=== PATIENT | female | born 1970 | race Caucasian/White ===

== ENCOUNTER → 2019-01-01 11:21 | Outpatient (CLI) | payer OTHER, SELFPAY ==
[2019-01-01 12:18] LABS: Add Manual Diff / Slide Review NO; Basophils Absolute Auto 100 /uL (0-100); Basophils Percent Auto 0.9 % (0-2); Eosinophils Absolute Auto 0 /uL (0-450); Eosinophils Percent Auto 0.6 % (2-4); Hematocrit 35.3 % (36-46); Hemoglobin 11.3 g/dL (12.0-16.0); Lymphocytes Absolute Auto 1200 /uL (1100-4500); Lymphocytes Percent Auto 20.2 % (25-40); Mean Corpuscular Hemoglobin 25.9 PG (26-34); Monocytes Absolute Auto 400 /uL (0-900); Monocytes Percent Auto 6.6 % (3-14); Neutrophils Absolute Auto 4200 /uL (1500-7000); Neutrophils Percent Auto 71.7 % (50-75); Platelet Count 372 X10^3/uL (150-400); Red Blood Cell Count 4.36 X10^6/uL (4.0-5.2); White Blood Cell Count 5.8 X10^3/uL (4.5-11.0)
== END ==
PROVIDERS: PCP Specialist; Visit Provider Specialist
DX: N92.0 Excessive and frequent menstruation with regular cycle (principal)
CPT/HCPCS: 36415; 85025

== ENCOUNTER 2019-01-07 15:13 | Observation (INO) | payer OTHER, SELFPAY ==
[2018-12-25 10:42] VITALS: BMI 26.8
[2019-01-06] VITALS (18 sets, daily range): BP systolic 104–133; BP diastolic 62–82; PULSE 73–103; RESP 8–20; TEMP 36.3–37.2; O2SAT 96–100; BMI 25.3
--- NOTE | 2019-01-06 | PATH_ITS ---
[facility] Accession Number: [id number] . 01 Material submitted: . uterus - UTERUS,RIGHT FALLOPIAN TUBE AND OVARY, LEFT FALLOPIAN TUBE . 02 Diagnosis: Uterus, Right Fallopian Tube and Ovary and Left Fallopian Tube, Supracervical Hysterectomy, Bilateral Salpingectomy and Right Oophorectomy: Secretory endometrium with no diagnostic abnormality. Adenomyosis. Multiple leiomyomata, up to 2.5 cm in greatest dimension. Bilateral fallopian tubes with endometriosis and simple benign paratubal cysts. 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 Negative for malignancy. [facility]/01/08/2019 . 02 Comment: As part of routine bottle house quality control technician, Dr. Talbot has reviewed slide A13 of this case and agrees with the diagnosis of benign mucinous cystadenoma. . 02 Electronically signed: . Schuyler Bowden MD, PhD, Pathologist NPI- [id number] . 01 Gross description: . Received in formalin, labeled uterus, right fallopian tube +ovary, left fallopian tube, is a uterus in two pieces (749 grams, 8.5 cm AP, 15.3 cm SI, 13.5 cm ML), a detached ovary (3.7 x 2.0 x 1.5 cm) with an attached fimbriated fallopian tube (length-6.2 cm, diameter-0.6 cm) and a detached fimbriated fallopian tube (length-2.5 cm, diameter-0.5 cm). The cervix and second ovary are absent. The specimen cannot be oriented as to anterior and posterior. The endometrial cavity is received opened with the other piece of uterine tissue appearing to come from the cavity. The endometrium and myometrium cannot be grossly measured. The uterine parenchyma is beckford-white with a white whorled pattern. Multiple solid firm white whorled well-circumscribed homogeneous nodules (0.9 x 0.7 x 0.5 cm-2.5 x 1.5 x 0.8 cm) are identified within the parenchyma as well as subserosal. The serosa is beckford smooth and dull. The ovary has beckford-salguero smooth shiny flat serosa and a beckford-white solid firm partially cystic parenchyma with corpus luteum identified. The cavity (up to 2.5 cm) contains red-brown solid paste-like material and clear colorless tacky fluid. The fallopian tubes have salguero-pink smooth dull serosa and beckford unremarkable lumens. Section code: (A1-A4) uterine parenchyma, ocean import representative; (A5-A8) uterine parenchyma, opposite side; (A9-A12) ocean import representative uterine parenchyma from the separate piece; (A13-A15) ovary, ocean import representative serial sections; (A16) attached fallopian tube, ocean import representative serial sections; (A17) attached fimbria, bivalved, entirely submitted; (A18) detached fallopian tube, ocean import representative serial sections; (A19) detached fimbria, bivalved, entirely submitted. ([id number]) /MRV . 02 Pathologist provided ICD-10: N80.0, N80.9, D25.9, D27.0 . 02 CPT . 214912 [facility] [address] [id number] MD Calvin Lloyd MD Phone: [phone] Performed at: [address] [id number] MD Valerie Talbot MD Phone: [phone]
--- NOTE | 2019-01-06 07:26 | PM.PREOP ---
Pre-operative Note Interval Note History & Physical reviewed/Exam performed by Physician: Yes Changes to H&P: Yes H&P completed within 30 days and has changed as indicated here:: pt requesting to leave cervix
[2019-01-06] MEDS: LACTATED RINGERS 1,000 ML 100 ML IV ×4 (07:35→20:58)
[2019-01-06] MEDS: CEFAZOLIN 2 GM/100 ML FROZ.PIGGY IV (07:50)
--- NOTE | 2019-01-06 08:11 | SUR.OPER ---
Supine on padded OR bed, head on pillow, arms secured on padded arm boards at <90 degrees abduction, legs uncrossed, safety belt at thigh, tape over blanket over lower legs.
[2019-01-06] MEDS: VASOPRESSIN 20 UNIT/ML VIAL IV (08:23)
[2019-01-06] MEDS: SODIUM CHLORIDE 0.9% FLUSH 10 ML IV (08:24)
--- NOTE | 2019-01-06 09:43 | P.OP_ITS ---
Operative Date/Time/Diagnoses Date of procedure: 01/06/19 Time of procedure: 09:32 Pre-op diagnosis: Menorrhagia and right ovarian complex cyst likely endometrioma Post-op diagnosis: same Procedure & Clinicians Procedure: Laparotomy with supracervical hysterectomy, right salpingo- oophorectomy, left salpingectomy with treatment of endometriosis on the left ovary Same procedure as scheduled: Yes Indications: Menorrhagia, uterine fibroids, complex right ovarian cyst suggestive of endometrioma Surgeon: Dai Murdock Maintenance Trainer: Hilda Nascimento Click Yes if Unassisted: No Anesthesia Type: General Operative Notes Findings: Large fibroid uterus with large right endometrioma, small left endometrioma with endometriosis on the left ovary. Normal appendix normal palpation of the upper abdomen. Closure Type: primary Specimen(s): other (Supracervical hysterectomy, right tube and ovary, left tube) Applied: catheter (Franks) Estimated Blood Loss (mL): 75 Blood products transfused: none Procedure in detail: Patient was brought to the operating room where she underwent general anesthesia. She was in a supine position with pulsatile stockings in place and functional, warming in place, Franks catheter placed. 2 g Ancef were in prior to beginning of the case. A check system was reviewed with the staff in the room prior to beginning the case. An incision was made suprapubically with the scalpel and the incision was carried down to the fascial layer. Bleeding was stopped with the Bovie. The fascia was incised transversely and superiorly and inferiorly. The rectus muscles were in the midline and the peritoneum entered sharply. No damage to internal structures were noted with entering the abdomen. The uterus was elevated out of the abdomen. The round ligaments were clamped cut and ligated. The anterior peritoneum was incised above the level the bladder. The infundibulopelvic ligament on the right side was clamped cut and ligated with 0 Vicryl suture which was used throughout the case unless otherwise indicated. The uterine arteries were clamped cut and ligated bilaterally. The fundus of the uterus was injected with vasopresson and the large fibroid was removed with blunt and sharp dissection. Bites were taken down the broad ligament to the level of the bladder. The uterus was removed supracervical with cautery and cauterization down in the endocervical canal was performed. Bleeding was stopped with the Bovie. The cervix was closed with interrupted 0 Vicryl suture. Adequate hemostasis was obtained with 2 0 Vicryl suture. The abdomen was irrigated. The left fallopian tube was removed and the small left endometrioma was cauterized and endometriosis on the surface ovary was cauterized. Adequate hemostasis was noted. the peritoneum was closed with 2 0 Vicryl suture. The fascia layer was closed with 0 Vicryl suture in 2 stitches starting at the corners and meeting in the midline. The incision was irrigated. The skin was closed with 4-0 Vicryl suture. Complications: none Condition: stable Disposition: Acute Care Plan for aftercare: Routine post abdominal hysterectomy
[2019-01-06] MEDS: fentaNYL 100 MCG/2 ML INJ 50 MCG IV ×2 (09:53→10:08)
--- NOTE | 2019-01-06 09:56 | SUR.PHASEI ---
Patient awake, talking, states that she feels' wacked out'...; I didn't expect to feel this normal. Dr. Murdock spoke with the patient. Asking multiple questions.
--- NOTE | 2019-01-06 10:23 | SUR.PHASEI ---
States that she was expecting pain to go away completely with Rx; educated patient regarding pain scales and that we want to maintain it no higher than a 5/10. patient is calm, relaxed, tolerating PO well, no grimace, moaning, or other non-verbal indicators of pain. States that she is sensitive to meds and that I wrote a book regarding her concerns; states that it helped it to feel better. I'm a ling and voiced concerns about her vocal cords, stated that her throat doesn't hurt.
--- NOTE | 2019-01-06 10:57 | SUR.PHASEI ---
1035 to room 202, bed down and locked, call light within reach. clothing and glasses to room. Patient A&O, stable VS. Family notified that she is in her room. Pain level steady. Report updated.
[2019-01-06] MEDS: ONDANSETRON 4 MG/2 ML INJ IV ×2 (11:19→15:10)
[2019-01-06] MEDS: KETOROLAC 30 MG/ML VIAL IV ×2 (11:26→17:57)
--- NOTE | 2019-01-06 11:32 | SUR.PHASEI ---
1035 To OPD; bed down and locked, call light within reach, Report given.
[2019-01-06] MEDS: HYDROMORPHONE PCA (6MG/30ML) 6 MG/30 ML PCA.VIAL IV (11:45)
--- NOTE | 2019-01-06 15:32 | PC.NURSE ---
Addendum entered by Chrissy Gee R.N. 01/06/19 15:46: Post-op (late entry): Arrived to room 202 at 1045. Awake and alert, oriented X3. Franks to gravity, urine pale clear yellow. Aquacel dressing on abdomen C/D/I. Scant dried sanguinous drainage on prateek-pad. CHIEF SCIENTIFIC OFFICER initiated per orders, Toradol given for pain as well. Had a couple bouts of nausea, no emesis- Zofran seems to have been effective. BT hypoactive, denies flatus. Sats on room air 99-100%. SCD's removed so she can rest, ankle waving encouraged. IVF per order, site in R wrist WNL. Oriented to room and call light, encouraged to make needs/concerns known. Call light in reach. Original Note: CHIEF SCIENTIFIC OFFICER usage: Used 2.4 mg CHIEF SCIENTIFIC OFFICER Dilaudid for day shift. Unable to chart in e-mar for some reason.
--- NOTE | 2019-01-06 16:10 | PC.NURSE ---
Addendum entered by Hilda Villalobos R.N. 01/06/19 21:56: Refuses SCD at night Addendum entered by Hilda Villalobos R.N. 01/06/19 21:53: Pt med at 2110 for discomfort. Had toradol previously Dsg CDI Stable post op course. Refusies F/C patent clear urine Original Note: Pt awake, presents anxious, asking many questions. Lungs clear, SpO2 96% RA. Dsg to left side w/shadow and right side CDI. IVF infusing via pump as per orders Franks cath patent clear yellow urine. Stable post op course. Call light w/in reach, bed alarm onn for pt safety.
[2019-01-06] MEDS: DOCUSATE 250 MG CAPSULE PO (20:59)
[2019-01-06] MEDS: OXYCODONE/ACETAMINOPHEN 5/325 TABLET 2 TAB PO (21:07)
[2019-01-07] VITALS (8 sets, daily range): BP systolic 107–118; BP diastolic 64–69; PULSE 68–82; RESP 16; TEMP 36.7–36.9; O2SAT 97–100
[2019-01-07] MEDS: KETOROLAC 30 MG/ML VIAL IV ×3 (00:37→12:47)
--- NOTE | 2019-01-07 00:56 | PC.NURSE ---
2300- Pt POD#0 supracervic hysterectomy w/ aquasil dressing on lower abdomen CDI. Franks catheter in place draining pale yellow urine w/ large amounts of output noted. LR running as ordered into R wrist; RA w/ VSS; not ambulated yet post op. 0045- Another 1000mL of output noted. LR turned off per protocol; good PO output noted & no nausea. IV toradol given per pt's request. Continues to have anxiety.
[2019-01-07] MEDS: OXYCODONE/ACETAMINOPHEN 5/325 TABLET 2 TAB PO ×5 (01:22→19:39)
[2019-01-07 06:22] LABS: Add Manual Diff / Slide Review NO; Basophils Absolute Auto 0 /uL (0-100); Basophils Percent Auto 0.3 % (0-2); Eosinophils Absolute Auto 0 /uL (0-450); Eosinophils Percent Auto 0.1 % (2-4); Hematocrit 32.5 % (36-46); Hemoglobin 10.6 g/dL (12.0-16.0); Lymphocytes Absolute Auto 1600 /uL (1100-4500); Mean Corpuscular HGB Conc 32.6 % (30-36); Mean Corpuscular Volume 79.9 fL (80-100); Monocytes Absolute Auto 1100 /uL (0-900); Monocytes Percent Auto 8.9 % (3-14); Neutrophils Absolute Auto 9700 /uL (1500-7000); Neutrophils Percent Auto 77.7 % (50-75); Platelet Count 329 X10^3/uL (150-400); Red Blood Cell Count 4.07 X10^6/uL (4.0-5.2); Red Cell Distribution Width 16.3 % (11.6-14.8); White Blood Cell Count 12.5 X10^3/uL (4.5-11.0)
[2019-01-07] MEDS: LEVOTHYROXINE PO (09:26)
[2019-01-07] MEDS: LIOTHYRONINE PO (09:26)
[2019-01-07] MEDS: MAGNESIUM HYDROXIDE 30 ML UDC PO (09:53)
[2019-01-07] MEDS: DOCUSATE 250 MG CAPSULE PO ×2 (09:53→20:30)
--- NOTE | 2019-01-07 10:53 | CM.DANOTE ---
DCP/continued: Reviewed chart. Patient is a 48yr old female admitted under [facility] for CANDIDO/BSO performed by Dr. Murdock on 01-06-19. PCP is Dr. Scott in [place]. Primary payor is 1)Healthcare Management. Met with patient explained CM/SW role. Patient sitting up in bed at time of visit. Patient reports that she is completely I in all ADL's. Patient works full-time at [employer]. Patient does not anticipate any d/c planning needs. Patient resides with her Mother/Tami and plans to return home when stable. Patient reports that she is very health conscious at baseline. Patient does not anticipate any d/c planning needs. Patient somewhat anxious about discharge. Patient reports that she is very much in control of her life and feels like this has made her somewhat out of control. Encouraged patient to use her deep breathing exercises if needed to assist in relieving her anxiety. Patient in agreement. P: Home when stable. HENRIK James Discharge Planning/Care Management CM Discharge Assessment Start: 01/07/19 10:51 Freq: Status: Active Protocol: Document 01/07/19 10:51 FRANS (Rec: 01/07/19 10:52 [facility] [id number]) Discharge Planning Assessment Assigned Truck Driver Teamster HENRIK James Advance Directives? Yes: needs document notarized Advance Directives on File No History Provided By Patient Medical Record Prior Living Arrangements House Household Members significant other family Type of transporation used prior to Drives own vehicle admit Independent with ADL's Yes Is patient alert and oriented? Yes Caregiver for Another No Barriers to Discharge No Discharge Plan Home Transportation Arrangement Family to provide transport. Referrals Initiated None needed Whiteboard Updated in Patient Room with Yes name and ext. # of Truck Driver Teamster Review Status In Process Next Review Type Continued Stay Review Pre-Anesthesia Assessment Start: 12/25/18 10:42 Freq: Status: Complete Protocol: Document 12/25/18 10:42 CAB (Rec: 12/25/18 10:51 CAB [id number]) Pre-Anesthesia Assessment Patient Information Reviewed Via Chart Review Phone Assessment Assessment Completed With Patient Primary Care Provider Erika Smith Seen Specialist in Last 12 Months Yes Specialist Seen A Class Lineman Primary Language [facility] Medical Specialist Required No Height 167.64 cm Weight 75.296 kg Body Mass Index (BMI) 26.8 Hx Anesthesia Reactions No: prior surgical history, I require more numbing med w/ dentist Anesthesia Review Requested No Digital Color Press Operator No alcohol intake never Alcohol Intake Frequency Other: None Smoking Status Never smoker Substance Use Type does not use Pain Present Pain Reported History of Falling (Recent or History of No ) Patient is completely paralyzed or No completely immobile Mental Status Oriented to own ability Is patient on oxygen? No Does patient have KENDRICK/SOB Yes Hx Sleep Apnea No Currently Taking a Beta Jorge L No Hx Chest Pain No Hx SOB Yes Hx Syncope or Dizziness No Anti-Coagulant Therapy No Has a Barber Shop Manager No Cardiac Testing No Hx Pacemaker/ICD No Pacemaker Rep Required? No Urinary Catheter Present No Hx Urinary Self Catheterization No Diabetes No Patient No Lactating No Marital Status Single Lives With significant other Support System Parent(s) Significant Other Patient Discharge Plan Description Return Home
--- NOTE | 2019-01-07 11:21 | PC.NURSE ---
Pt alert, oriented rates abdominal pain 2/10 given one percocet at 1000. Ambulated in [place], gait steady. Bt+ denies nausea. Franks removed at 1100.
--- NOTE | 2019-01-07 17:37 | PM.PNPO.1 ---
Subjective Date Patient Seen: 01/07/19 Time Patient Seen: 17:37 Interval history: Postoperative day #1 supracervical hysterectomy with right salpingo-oophorectomy left salpingectomy. Patient has been able to ambulate to the bathroom and back slowly with a walker. She is urinating well. She states she is passing gas. Her pain is under control. Exam Vital Signs (past 8 hours): - 01/07/19 12:00 01/07/19 15:15 01/07/19 16:00 Temperature 98.4 F 98.5 F Pulse Rate 80 68 Respiratory Rate 16 16 Blood Pressure 107/64 112/68 Pulse Oximetry 99 100 97 Oxygen Delivery Method Room Air Oxygen Flow Rate 0 Narrative Exam Narrative: Patient's abdomen is soft, minimally distended, appropriately tender. The dressing is dry. No vaginal bleeding. Extremities without edema and nontender. Objective Labs Result Diagrams: 01/07/19 05:50 Labs: Laboratory Results - last 24 hr 01/07/19 05:50 WBC 12.5 H RBC 4.07 Hgb 10.6 L Hct 32.5 L MCV 79.9 L MCH 26.0 MCHC 32.6 RDW 16.3 H Plt Count 329 Neut % (Auto) 77.7 H Lymph % (Auto) 13.0 L [place] % (Auto) 8.9 Eos % (Auto) 0.1 L Baso % (Auto) 0.3 Neut # (Auto) 9700 H Lymph # (Auto) 1600 [place] # (Auto) 1100 H Eos # (Auto) 0 Baso # (Auto) 0 Assessment & Plan Post-op (1) Menorrhagia with regular cycle: (2) Endometrioma of ovary: (3) Submucous uterine fibroid: Postoperative Procedures Operation Date: 01/06/19 07:45 Actual Procedures Side Surgeon p Supracervical Abdominal Hysterectomy, Right Salpingo-Oophorectomy,LEFT SALPINGECTOMY Dai Murdock MD Postoperative day: 1 Postoperative status: doing well Postoperative status narrative: Patient is doing well postoperative although moving slow Postoperative plan: routine post-op care Postoperative plan narrative: Plan is for discharge tomorrow if she continues to improve. Time Spent With Patient 15-24 minutes Quality VTE Deep Vein Thrombosis/Pulmonary Embolism Present on Admission: No
--- NOTE | 2019-01-07 17:40 | P.PN_ITS ---
Subjective Date Patient Seen: 01/07/19 Time Patient Seen: 17:37 Interval history: Postoperative day #1 supracervical hysterectomy with right salpingo-oophorectomy left salpingectomy. Patient has been able to ambulate to the bathroom and back slowly with a walker. She is urinating well. She states she is passing gas. Her pain is under control. Exam Vital Signs (past 8 hours): - 01/07/19 12:00 01/07/19 15:15 01/07/19 16:00 Temperature 98.4 F 98.5 F Pulse Rate 80 68 Respiratory Rate 16 16 Blood Pressure 107/64 112/68 Pulse Oximetry 99 100 97 Oxygen Delivery Method Room Air Oxygen Flow Rate 0 Narrative Exam Narrative: Patient's abdomen is soft, minimally distended, appropriately tender. The dressing is dry. No vaginal bleeding. Extremities without edema and nontender. Objective Labs Result Diagrams: 01/07/19 05:50 Labs: Laboratory Results - last 24 hr 01/07/19 05:50 WBC 12.5 H RBC 4.07 Hgb 10.6 L Hct 32.5 L MCV 79.9 L MCH 26.0 MCHC 32.6 RDW 16.3 H Plt Count 329 Neut % (Auto) 77.7 H Lymph % (Auto) 13.0 L [place] % (Auto) 8.9 Eos % (Auto) 0.1 L Baso % (Auto) 0.3 Neut # (Auto) 9700 H Lymph # (Auto) 1600 [place] # (Auto) 1100 H Eos # (Auto) 0 Baso # (Auto) 0 Assessment & Plan Post-op (1) Menorrhagia with regular cycle: (2) Endometrioma of ovary: (3) Submucous uterine fibroid: Postoperative Procedures Operation Date: 01/06/19 07:45 Actual Procedures Side Surgeon p Supracervical Abdominal Hysterectomy, Right Salpingo-Oophorectomy,LEFT SALPINGECTOMY Dai Murdock MD Postoperative day: 1 Postoperative status: doing well Postoperative status narrative: Patient is doing well postoperative although moving slow Postoperative plan: routine post-op care Postoperative plan narrative: Plan is for discharge tomorrow if she continues to improve. Time Spent With Patient 15-24 minutes Quality VTE Deep Vein Thrombosis/Pulmonary Embolism Present on Admission: No
[2019-01-07] MEDS: IBUPROFEN 600 MG TABLET PO (18:10)
[2019-01-08 00:15] VITALS: BP 117/70; PULSE 65; RESP 16; TEMP 36.8; O2SAT 100
[2019-01-08 00:20] VITALS: O2SAT 100
[2019-01-08] MEDS: IBUPROFEN 600 MG TABLET PO ×2 (00:23→08:31)
[2019-01-08] MEDS: ONDANSETRON 4 MG/2 ML INJ IV (01:10)
[2019-01-08] MEDS: LEVOTHYROXINE PO (06:36)
[2019-01-08] MEDS: LIOTHYRONINE PO (06:36)
[2019-01-08 08:00] VITALS: BP 113/58; PULSE 76; RESP 16; TEMP 36.6; O2SAT 99
--- NOTE | 2019-01-08 08:02 | PM.DS.1 ---
History of Present Illness Date Patient Seen: 01/08/19 Time Patient Seen: 08:02 Chief complaint: [id number] CANDIDO/BSO *OPB* Narrative: Postoperative day #2 abdominal supracervical hysterectomy, right salpingo-oophorectomy, left salpingectomy Discharge Providers Date of admission: 01/07/19 15:13 Discharge Date: 01/08/19 Primary care physician: Dai Murdock MD Discharge provider: Dai Murdock MD Summary Discharge Diagnosis: Menorrhagia from Submucous fibroids, bilateral endometriomas Hospital Course: Patient underwent a supracervical hysterectomy with right salpingo-oophorectomy and left salpingectomy on 01/06/19. Patient did well postoperatively. She is ambulatory. She is passing gas. She is urinating without difficulty. She is tolerating oral pain medicines. She feels her pain is under good control. Patient plans on taking Aleve and already has prescription for postoperative Percocet. Status at Discharge Cognitive/behavioral status at discharge: oriented Overall status at discharge: patient is progressing back to baseline Time Spent with Patient Less than 30 minutes Exam Vital Signs (past 8 hours): - 01/08/19 00:15 01/08/19 00:20 Temperature 98.3 F Pulse Rate 65 Respiratory Rate 16 Blood Pressure 117/70 Pulse Oximetry 100 100 Oxygen Delivery Method Room Air Oxygen Flow Rate 0 Narrative Exam Narrative: Abdomen is soft, nontender. Her dressing is clean, dry, intact. no vaginal bleeding. Extremities without edema and nontender. Objective Labs Result Diagrams: 01/07/19 05:50 Discharge Plan Discharge Plan Patient Disposition: Home Discharge Med Rec/Prescriptions Prescriptions: Continued levothyroxine 50 mcg Tablet 40 mcg PO DAILY RF: 0 liothyronine 5 mcg Tablet 12 mcg PO DAILY RF: 0 oxycodone-acetaminophen 5-325 mg tablet 2 tab PO Q4-6H PRN (Reason: pain) Qty: 40 RF: 0 Discontinued progesterone micronized 100 mg Capsule 150 mg PO QAM RF: 0 naltrexone 50 mg Tablet 25 mg PO DAILY RF: 0 Follow up/Referrals: Dai Murdock MD [Primary Care Provider] - 01/15/19 4:15 pm (appt already made) Provider Discharge Instructions Diet: Regular Activity: Do not lift over 20 pounds for 6 weeks Skin/Wound/Dressing Care Report to your healthcare provider any signs of infection, such as:: chills, fever, increased pain and unusual redness Dressing: leave dressing on until postop appt Visit Report/Discharge Packet Instructions: DI for Hysterectomy Stand Alone Forms: Surgery Discharge Discharge Data Primary Care Provider: Dai Murdock Attending Provider: Dai Murdock Admit Date/Time: 01/07/19 15:13 Quality VTE Deep Vein Thrombosis/Pulmonary Embolism Present on Admission: No
--- NOTE | 2019-01-08 08:07 | P.DS_ITS ---
History of Present Illness Date Patient Seen: 01/08/19 Time Patient Seen: 08:02 Chief complaint: [id number] CANDIDO/BSO *OPB* Narrative: Postoperative day #2 abdominal supracervical hysterectomy, right salpingo-oophorectomy, left salpingectomy Discharge Providers Date of admission: 01/07/19 15:13 Discharge Date: 01/08/19 Primary care physician: Dai Murdock MD Discharge provider: Dai Murdock MD Summary Discharge Diagnosis: Menorrhagia from Submucous fibroids, bilateral endometriomas Hospital Course: Patient underwent a supracervical hysterectomy with right salpingo-oophorectomy and left salpingectomy on 01/06/19. Patient did well postoperatively. She is ambulatory. She is passing gas. She is urinating without difficulty. She is tolerating oral pain medicines. She feels her pain is under good control. Patient plans on taking Aleve and already has prescripti on for postoperative Percocet. Status at Discharge Cognitive/behavioral status at discharge: oriented Overall status at discharge: patient is progressing back to baseline Time Spent with Patient Less than 30 minutes Exam Vital Signs (past 8 hours): - 01/08/19 00:15 01/08/19 00:20 Temperature 98.3 F Pulse Rate 65 Respiratory Rate 16 Blood Pressure 117/70 Pulse Oximetry 100 100 Oxygen Delivery Method Room Air Oxygen Flow Rate 0 Narrative Exam Narrative: Abdomen is soft, nontender. Her dressing is clean, dry, intact. no vaginal bleeding. Extremities without edema and nontender. Objective Labs Result Diagrams: 01/07/19 05:50 Discharge Plan Discharge Plan Patient Disposition: Home Discharge Med Rec/Prescriptions Prescriptions: Continued levothyroxine 50 mcg Tablet 40 mcg PO DAILY RF: 0 liothyronine 5 mcg Tablet 12 mcg PO DAILY RF: 0 oxycodone-acetaminophen 5-325 mg tablet 2 tab PO Q4-6H PRN (Reason: pain) Qty: 40 RF: 0 Discontinued progesterone micronized 100 mg Capsule 150 mg PO QAM RF: 0 naltrexone 50 mg Tablet 25 mg PO DAILY RF: 0 Follow up/Referrals: Dai Murdock MD [Primary Care Provider] - 01/15/19 4:15 pm (appt already made) Provider Discharge Instructions Diet: Regular Activity: Do not lift over 20 pounds for 6 weeks Skin/Wound/Dressing Care Report to your healthcare provider any signs of infection, such as:: chills, fever, increased pain and unusual redness Dressing: leave dressing on until postop appt Visit Report/Discharge Packet Instructions: DI for Hysterectomy Stand Alone Forms: Surgery Discharge Discharge Data Primary Care Provider: Dai Murdock Attending Provider: Dai Murdock Admit Date/Time: 01/07/19 15:13 Quality VTE Deep Vein Thrombosis/Pulmonary Embolism Present on Admission: No
[2019-01-08] MEDS: DOCUSATE 250 MG CAPSULE PO (08:31)
== END 2019-01-08 13:44 | disposition home or self-care (01) ==
LOC: OR 15:53
PROVIDERS: Admitting Provider Specialist; PCP Specialist; Visit Provider Specialist
PROC: 0UT90ZZ Resection of Uterus, Open Approach (ICD-10-PCS; CPT 58150; principal; 2019-01-06 07:45)
DX: D25.0 Submucous leiomyoma of uterus (principal); N80.1 Endometriosis of ovary; N80.0 Endometriosis of uterus; D27.0 Benign neoplasm of right ovary; E06.3 Autoimmune thyroiditis
CPT/HCPCS: 58542; 36415; 58180; 85025; G0378; J0690; J1100; J1885; J2405; J2704; J3010

== ENCOUNTER → 2024-01-30 13:11 | Outpatient (CLI) | payer OTHER, SELFPAY ==
[2019-01-06 11:59] VITALS: BMI 25.3
--- NOTE | 2024-01-30 13:16 | DI.RAD.S_ITS ---
PROCEDURE: XR CERVICAL SPINE 2V OR 3V INDICATIONS: Radiculopathy, cervical region TECHNIQUE: 3 view(s) of the cervical spine were acquired. COMPARISON: None. FINDINGS: Bones: No fractures or dislocations to the C7-T1 level. The lateral masses of C1 appear intact on the odontoid view. No suspicious bony lesions. There is trace retrolisthesis of C5 on C6. Severe disc space narrowing is present C5-6. Multilevel uncovertebral arthropathy is present most severe at C5-6 and C6-7. Soft tissues: No prevertebral soft tissue swelling. IMPRESSION: Degenerative changes most severe at C5-6. Dictated by: Jessica Carvajal M.D. on 01/30/2024 at 17:16 Approved by: Jessica Carvajla M.D. on 01/30/2024 at 17:16
== END ==
LOC: RAD 13:14
PROVIDERS: PCP Specialist; Referring Provider Chiropractor; Visit Provider Chiropractor
DX: M47.22 Other spondylosis with radiculopathy, cervical region (principal); M50.10 Cervical disc disorder with radiculopathy, unspecified cervical region
CPT/HCPCS: 72040

== ENCOUNTER → 2024-05-14 16:04 | Outpatient (CLI) | payer BC, SELFPAY ==
[2019-01-06 11:59] VITALS: BMI 25.3
--- NOTE | 2024-05-14 16:08 | DI.RAD.S_ITS ---
PROCEDURE: XR HIP W PEL IF DONE IMAN MIN 4V INDICATIONS: HIP PAIN TECHNIQUE: AP pelvis with lateral view(s) of the bilateral hip(s). COMPARISON: [facility], CR, XR HIP 2 VIEWS LEFT, 02/09/2023, 13:30. FINDINGS: No acute fracture or dislocation. The hip joints are preserved. The sacroiliac joints are preserved. Re-identified with lobular calcifications along the greater trochanters. 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 No fracture or dislocation. Dictated by: Curt Castañeda M.D. on 05/14/2024 at 21:12 Approved by: Curt Castañeda M.D. on 05/14/2024 at 21:14
== END ==
LOC: RAD 16:06
PROVIDERS: PCP Specialist; Referring Provider Chiropractor; Visit Provider Chiropractor
DX: S73.102A Unspecified sprain of left hip, initial encounter (principal); M25.852 Other specified joint disorders, left hip; M25.851 Other specified joint disorders, right hip; X58.XXXA Exposure to other specified factors, initial encounter
CPT/HCPCS: 73522

== ENCOUNTER → 2024-05-20 13:52 | Outpatient (CLI) | payer BC, SELFPAY ==
[2019-01-06 11:59] VITALS: BMI 25.3
--- NOTE | 2024-05-20 13:55 | DI.RAD.S_ITS ---
PROCEDURE: XR PELVIS 1-2V INDICATIONS: HIP PAIN TECHNIQUE: 1 view(s) of the pelvis acquired. COMPARISON: [facility], CR, XR HIP W PEL IF DONE IMAN 3TO4V, 05/14/2024, 16:05. FINDINGS: Bones: No fractures or dislocations. Mild bilateral hip joint osteoarthritis. No evidence of avascular necrosis of femoral head. No suspicious bony lesions. Soft tissues: Visualized bowel gas pattern is normal. No suspicious soft tissue calcifications. IMPRESSION: Very mild bilateral hip joint osteoarthritis. No pelvic or hip fracture. No evidence of avascular necrosis. Dictated by: Timmy Acevedo M.D. on 05/20/2024 at 18:18 Approved by: Timmy Acevedo M.D. on 05/20/2024 at 18:18
== END ==
PROVIDERS: PCP Specialist; Referring Provider Chiropractor; Visit Provider Chiropractor
DX: S73.102A Unspecified sprain of left hip, initial encounter (principal); M16.0 Bilateral primary osteoarthritis of hip; M25.852 Other specified joint disorders, left hip; X58.XXXA Exposure to other specified factors, initial encounter
CPT/HCPCS: 72170